=== PATIENT | male | born 1965 | race Caucasian/White ===

== ENCOUNTER 2019-04-19 22:45 | Emergency (ER) | payer SELFPAY ==
[~2019-04-19] VITALS: Ht 167.6 cm; Wt 95.3 kg
[2019-04-19] MEDS ORDERED: IV NORMAL SALINE 1000ML BAG 1,000 ML IV ONE (23:15)
[2019-04-19] MEDS ORDERED: ONDANSETRON PF 4 MG/2 ML VIAL. IV ONE (23:30)
[2019-04-19] MEDS ORDERED: MULTIVIT INFUSN,ADULT 4,VIT K 10 ML, THIAMINE INJ 100 MG, FOLIC ACID INJ 1 MG in IV NOR... IV ONE (23:30)
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
[2019-04-20 00:23] LABS: BASO # 0.1 x10^3/uL (0.0-0.2); BASO % 1 % (0-3); EOS # 0.2 x10^3/uL (0.0-0.7); EOS % 3 % (0-3); HEMATOCRIT 47.2 % (39.0-53.0); HEMOGLOBIN 16.6 g/dL (13.0-17.5); LYMPH # 2.4 x10^3/uL (1.0-4.8); LYMPH % 30 % (24-48); MEAN CORPUSCULAR HEMOGLOBIN 33 pg (25-35); MEAN CORPUSCULAR HGB CONC 35 g/dL (31-37); MEAN CORPUSCULAR VOLUME 94 fL (79-100); MONO # 0.7 x10^3/uL (0.0-1.1); MONO % 8 % (0-9); NEUT # 4.7 x10^3/uL (1.8-7.7); NEUT % 58 % (31-73); PLATELET COUNT 333 x10^3/uL (140-400); RED BLOOD COUNT 5.04 x10^6/uL (4.30-5.70); RED CELL DISTRIBUTION WIDTH 13.5 % (11.5-14.5); WHITE BLOOD COUNT 8.1 x10^3/uL (4.0-11.0)
[2019-04-20 00:32] LABS: CALCIUM 8.9 mg/dL (8.5-10.1); CREATININE 0.8 mg/dL (0.7-1.3); GFR 100.4; POTASSIUM 3.5 mmol/L (3.5-5.1)
[2019-04-20 00:44] LABS: ALBUMIN 3.5 g/dL (3.4-5.0); ALBUMIN/GLOBULIN RATIO 0.9 (1.0-1.7); TOTAL BILIRUBIN 0.8 mg/dL (0.2-1.0); TOTAL PROTEIN 7.3 g/dL (6.4-8.2)
--- NOTE | 2019-04-20 00:53 | RAD ---
CT HEAD AND CERVICAL SPINE WO Date: 04/20/2019 12:24 AM Clinical Indication: Seizure, pain, trauma Comparison: None. Technique: 5 mm axial tomographic images were obtained of the head without contrast. These were viewed on brain and bone windows. CT imaging of the cervical spine was performed without contrast. Coronal and sagittal reformatted images were performed. One or more of the following dose reduction techniques were utilized: Automated exposure control (AEC), Adjustment of mA and/or kV according to patient size, Use of iterative reconstruction technique such as ASiR, CT scan done according to ALARA and image gently/image wisely HEAD FINDINGS: The brain parenchyma is normal in attenuation. No intra- or extra-axial mass or fluid collection. No acute hemorrhage. The ventricles are normal in size, shape, and morphology. The wright-white matter junction is normal. The basilar cisterns are patent. Nonspecific small left cerebellar calcification, possibly a cavernoma. The visualized paranasal sinuses are normal. The visualized portions of the orbits and globes are normal. The mastoid air cells are clear. No aggressive osseous lesion or fracture. Right frontal scalp lipoma. CERVICAL SPINE FINDINGS: Postsurgical changes of ACDF at C6-C7, with interbody spacer. Straightening of the cervical lordosis. No acute fracture. No aggressive lytic or blastic osseous lesion. Mild multilevel degenerative disc height loss. Multilevel disc protrusions and marginal osteophytes results in multilevel spinal canal stenosis, worst and moderate to severe at C6-7. Multilevel uncovertebral and facet arthrosis results in multilevel predominately mild to moderate neural foraminal narrowing. The thyroid gland is normal. No cervical lymphadenopathy. The visualized aerodigestive tract is unremarkable. Bilateral carotid atherosclerosis. The visualized lung apices are clear. IMPRESSION: 1. No acute intracranial process. 2. No acute osseous abnormality of the cervical spine. Electronically signed by: Trae Prado MD (04/20/2019 12:50 AM) [id number]
[2019-04-20] MEDS ORDERED: KETOROLAC 15 MG/ML VIAL. IV ONE (01:00)
[2019-04-20] MEDS ORDERED: ORPHENADRINE CITRATE 60 MG/2 ML VIAL. IV ONE (01:00)
[2019-04-20] MEDS ORDERED: ORPH100T PO (02:05)
[2019-04-20] MEDS ORDERED: ONDA4TAB12 PO (02:05)
[2019-04-20 02:40] VITALS: BP 103/55
--- NOTE | 2019-04-20 05:21 | EKG ---
[facility] [address] [place] [address] Test Date: 2019-04-19 Test Time: 23:33:56 Pat Name: NAZARIO COLEMAN Department: Room: Gender: M [employer]acking [employer]: : [id number] Requested By: BRUCE SANTIAGO Order Number: [id number] Reading MD: Measurements Intervals [place] Rate: 76 P: 41 [place]: 154 QRS: 90 QRSD: 118 T: 58 QT: 400 QTc: 454 Interpretive Statements SINUS RHYTHM INCOMPLETE RIGHT BUNDLE BRANCH BLOCK NON SPECIFIC ST-T ABNORMALITY (ELEVATION) OTHERWISE NORMAL ECG No previous ECG available for comparison
== END 2019-04-20 03:00 | disposition home or self-care (01) ==
LOC: ER 22:45
DX: R56.9 Unspecified convulsions (principal); R11.2 Nausea with vomiting, unspecified; G89.29 Other chronic pain; M54.42 Lumbago with sciatica, left side; R19.7 Diarrhea, unspecified; F10.20 Alcohol dependence, uncomplicated; Y90.0 Blood alcohol level of less than 20 mg/100 ml; Z88.5 Allergy status to narcotic agent
CPT/HCPCS: 36415; 70450; 72125; 80053; 82553; 83605; 83690; 83735; 84484; 85025; 93005; 96361; 96365; 96375; 99285; G0480; J1885; J2360; J2405; J7030

== ENCOUNTER 2019-05-02 22:09 | Emergency (ER) | payer SELFPAY ==
[~2019-05-02] VITALS: Ht 170.2 cm; Wt 99.8 kg
[~2019-05-02 22:09] MED LIST: ONDA4TAB12 PO; ORPH100T PO
[2019-05-02 22:35] LABS: BASO # 0.1 x10^3/uL (0.0-0.2); BASO % 1 % (0-3); EOS # 0.4 x10^3/uL (0.0-0.7); EOS % 5 % (0-3); HEMATOCRIT 49.1 % (39.0-53.0); HEMOGLOBIN 17.1 g/dL (13.0-17.5); LYMPH # 4.1 x10^3/uL (1.0-4.8); LYMPH % 45 % (24-48); MEAN CORPUSCULAR HEMOGLOBIN 33 pg (25-35); MEAN CORPUSCULAR HGB CONC 35 g/dL (31-37); MEAN CORPUSCULAR VOLUME 94 fL (79-100); MONO # 0.7 x10^3/uL (0.0-1.1); MONO % 8 % (0-9); NEUT # 3.8 x10^3/uL (1.8-7.7); NEUT % 41 % (31-73); PLATELET COUNT 326 x10^3/uL (140-400); RED BLOOD COUNT 5.23 x10^6/uL (4.30-5.70); RED CELL DISTRIBUTION WIDTH 13.7 % (11.5-14.5); WHITE BLOOD COUNT 9.2 x10^3/uL (4.0-11.0)
--- NOTE | 2019-05-02 22:39 | PHYS DOC ---
Past Medical History Past Medical History: Alcoholism, CAD, Depression, Diabetes-Type II, High Cholesterol, Hypertension, Hypothyroid (BRUCE JUAREZ APRN) Alcohol Use: Heavy Drug Use: None (BRUCE JUAREZ APRN) Adult General Chief Complaint Chief Complaint: SEIZURE HPI HPI Patient is a 53 year old male that presents with alcohol intoxication, and seizures. The patient states he has a history of seizures this occurred 19 years ago. He is not on any seizure medicine. The patient has been drinking heavily today and started with 5 beers at the [employer] and has continued to watch football all day. The patient states he has been having more seizures than normal recently this correlates with his alcohol use. Rates his pain as 10 out of 10 in severity and states he has chronic pain, and is on 30 mg oxycodone at home. (BRUCE JUAREZ APRN) Review of Systems Review of Systems Constitutional: Denies fever or chills [] Eyes: Denies change in visual acuity, redness, or eye pain [] HENT: Denies nasal congestion or sore throat [] Respiratory: Denies cough or shortness of breath [] Cardiovascular: No additional information not addressed in HPI [] GI: Denies abdominal pain, nausea, vomiting, bloody stools or diarrhea [] : Denies dysuria or hematuria [] Musculoskeletal: Denies back pain or joint pain [] Integument: Denies rash or skin lesions [] Neurologic: Denies headache, focal weakness or sensory changes [] Endocrine: Denies polyuria or polydipsia [] Complete systems were reviewed and found to be within normal limits, except as documented in this note. (BRUCE JUAREZ APRN) Current Medications Current Medications Current Medications Medications (Trade) Dose Ordered Sig/Quinton Start Time Stop Time Status Last Admin Dose Admin Folic Acid (Folic Acid) 1 mg 1X ONCE 05/02/19 22:45 05/02/19 22:46 DC Ketamine HCl (Ketamine) 10 mg 1X ONCE 05/02/19 22:30 05/02/19 22:32 DC 05/02/19 22:45 10 MG Levetiracetam 1500 mg/Dextrose 115 ml @ 440 mls/hr 1X ONCE 05/02/19 23:45 05/03/19 00:00 DC 05/02/19 23:42 440 MLS/HR Lorazepam (Ativan Inj) 2 mg 1X ONCE 05/02/19 22:30 05/02/19 22:32 DC 05/02/19 23:40 2 MG Sodium Chloride 500 ml @ 500 mls/hr 1X ONCE 05/02/19 22:30 05/02/19 23:29 DC 05/02/19 22:45 500 MLS/HR Thiamine HCl 100 mg/Dextrose 51 ml @ 102 mls/hr 1X ONCE 05/02/19 22:45 05/02/19 23:14 DC 05/02/19 23:38 102 MLS/HR (KAYLAH SEALS MD) Allergies Allergies Allergies Coded Allergies Type Severity Reaction Last Updated Verified morphine Adverse Reaction Mild nausea 04/19/19 Yes (KAYLAH SEALS MD) Physical Exam Physical Exam Constitutional: Well developed, well nourished, no acute distress, non-toxic appearance. [] HENT: Normocephalic, atraumatic, bilateral external ears normal, oropharynx moist, no oral exudates, nose normal. [] Eyes: PERRLA, EOMI, conjunctiva normal, no discharge. [] Neck: Normal range of motion, no tenderness, supple, no stridor. [] Cardiovascular:Heart rate regular rhythm, no murmur [] Lungs & Thorax: Bilateral breath sounds clear to auscultation [] Abdomen: Bowel sounds normal, soft, no tenderness, no masses, no pulsatile masses. [] Skin: Warm, dry, no erythema, no rash. [] Back: No tenderness, no CVA tenderness. [] Extremities: No tenderness, no cyanosis, no clubbing, ROM intact, no edema. [] Neurologic: Alert and oriented X 3, slurred speech, smells of ETOH, normal motor function, normal sensory function, no focal deficits noted. [] Psychologic: Affect normal, judgement reduced, mood normal. [] (BRUCE JUAREZ APRN) Current Patient Data Vital Signs Vital Signs Date Time Temp Pulse Resp B/P (MAP) Pulse Ox O2 Delivery O2 Flow Rate FiO2 05/03/19 02:30 70 21 93 05/02/19 22:10 97.8 100/62 (75) Room Air 97.8 (KAYLAH SEALS MD) Lab Values Laboratory Tests Test 05/02/19 22:15 05/02/19 23:30 White Blood Count 9.2 x10^3/uL (4.0-11.0) Red Blood Count 5.23 x10^6/uL (4.30-5.70) Hemoglobin 17.1 g/dL (13.0-17.5) Hematocrit 49.1 % (39.0-53.0) Mean Corpuscular Volume 94 fL (79-100) Mean Corpuscular Hemoglobin 33 pg (25-35) Mean Corpuscular Hemoglobin Concent 35 g/dL (31-37) Red Cell Distribution Width 13.7 % (11.5-14.5) Platelet Count 326 x10^3/uL (140-400) Neutrophils (%) (Auto) 41 % (31-73) Lymphocytes (%) (Auto) 45 % (24-48) Monocytes (%) (Auto) 8 % (0-9) Eosinophils (%) (Auto) 5 % (0-3) H Basophils (%) (Auto) 1 % (0-3) Neutrophils # (Auto) 3.8 x10^3/uL (1.8-7.7) Lymphocytes # (Auto) 4.1 x10^3/uL (1.0-4.8) Monocytes # (Auto) 0.7 x10^3/uL (0.0-1.1) Eosinophils # (Auto) 0.4 x10^3/uL (0.0-0.7) Basophils # (Auto) 0.1 x10^3/uL (0.0-0.2) Sodium Level 139 mmol/L (136-145) Potassium Level 3.8 mmol/L (3.5-5.1) Chloride Level 103 mmol/L (98-107) Carbon Dioxide Level 18 mmol/L (21-32) L Anion Gap 18 (6-14) H Blood Urea Nitrogen 5 mg/dL (8-26) L Creatinine 0.9 mg/dL (0.7-1.3) Estimated GFR (Cockcroft-Gault) 87.6 BUN/Creatinine Ratio 6 (6-20) Glucose Level 95 mg/dL (70-99) Lactic Acid Level 4.9 mmol/L (0.4-2.0) *H Calcium Level 9.2 mg/dL (8.5-10.1) Total Bilirubin 0.5 mg/dL (0.2-1.0) Aspartate Amino Transferase (AST) 24 U/L (15-37) Alanine Aminotransferase (ALT) 19 U/L (16-63) Alkaline Phosphatase 112 U/L (46-116) Total Protein 7.6 g/dL (6.4-8.2) Albumin 3.6 g/dL (3.4-5.0) Albumin/Globulin Ratio 0.9 (1.0-1.7) L Ethyl Alcohol Level 173 mg/dL (0-10) H Urine Opiates Screen Neg (NEG) Urine Methadone Screen Neg (NEG) Urine Barbiturates Neg (NEG) Urine Phencyclidine Screen Neg (NEG) Urine Amphetamine/Methamphetamine Neg (NEG) Urine Benzodiazepines Screen Neg (NEG) Urine Cocaine Screen Pos (NEG) Urine Cannabinoids Screen Neg (NEG) Urine Ethyl Alcohol Pos (NEG) Laboratory Tests 05/02/19 22:15 Laboratory Tests 05/02/19 22:15 (KAYLAH SEALS MD) Lab Values Laboratory Tests Test 05/02/19 22:15 05/02/19 23:30 White Blood Count 9.2 x10^3/uL (4.0-11.0) Red Blood Count 5.23 x10^6/uL (4.30-5.70) Hemoglobin 17.1 g/dL (13.0-17.5) Hematocrit 49.1 % (39.0-53.0) Mean Corpuscular Volume 94 fL (79-100) Mean Corpuscular Hemoglobin 33 pg (25-35) Mean Corpuscular Hemoglobin Concent 35 g/dL (31-37) Red Cell Distribution Width 13.7 % (11.5-14.5) Platelet Count 326 x10^3/uL (140-400) Neutrophils (%) (Auto) 41 % (31-73) Lymphocytes (%) (Auto) 45 % (24-48) Monocytes (%) (Auto) 8 % (0-9) Eosinophils (%) (Auto) 5 % (0-3) H Basophils (%) (Auto) 1 % (0-3) Neutrophils # (Auto) 3.8 x10^3/uL (1.8-7.7) Lymphocytes # (Auto) 4.1 x10^3/uL (1.0-4.8) Monocytes # (Auto) 0.7 x10^3/uL (0.0-1.1) Eosinophils # (Auto) 0.4 x10^3/uL (0.0-0.7) Basophils # (Auto) 0.1 x10^3/uL (0.0-0.2) Sodium Level 139 mmol/L (136-145) Potassium Level 3.8 mmol/L (3.5-5.1) Chloride Level 103 mmol/L (98-107) Carbon Dioxide Level 18 mmol/L (21-32) L Anion Gap 18 (6-14) H Blood Urea Nitrogen 5 mg/dL (8-26) L Creatinine 0.9 mg/dL (0.7-1.3) Estimated GFR (Cockcroft-Gault) 87.6 BUN/Creatinine Ratio 6 (6-20) Glucose Level 95 mg/dL (70-99) Lactic Acid Level 4.9 mmol/L (0.4-2.0) *H Calcium Level 9.2 mg/dL (8.5-10.1) Total Bilirubin 0.5 mg/dL (0.2-1.0) Aspartate Amino Transferase (AST) 24 U/L (15-37) Alanine Aminotransferase (ALT) 19 U/L (16-63) Alkaline Phosphatase 112 U/L (46-116) Total Protein 7.6 g/dL (6.4-8.2) Albumin 3.6 g/dL (3.4-5.0) Albumin/Globulin Ratio 0.9 (1.0-1.7) L Ethyl Alcohol Level 173 mg/dL (0-10) H Urine Opiates Screen Neg (NEG) Urine Methadone Screen Neg (NEG) Urine Barbiturates Neg (NEG) Urine Phencyclidine Screen Neg (NEG) Urine Amphetamine/Methamphetamine Neg (NEG) Urine Benzodiazepines Screen Neg (NEG) Urine Cocaine Screen Pos (NEG) Urine Cannabinoids Screen Neg (NEG) Urine Ethyl Alcohol Pos (NEG) Laboratory Tests 05/02/19 22:15 Laboratory Tests 05/02/19 22:15 (BRUCE JUAREZ APRN) EKG EKG [] (BRUCE JUAREZ APRN) Radiology/Procedures Radiology/Procedures [] (BRUCE JUAREZ APRN) Course & Med Decision Making Course & Med Decision Making Pertinent Labs and Imaging studies reviewed. (See chart for details) Will get labs (patient is not on seizure medication), and tox. Will also give 2 mg of Ativan and then 0.1 mg/kg of Ketamine to help with alcohol, seizures, pain, and agitation. Will give 500 mL bolus of fluid with thiamine and folic acid. Also loaded up patient with 1500 mg of Keppra. Patient has lactic of 4.9 that is due to the seizures the patient has been having. The patient is positive for cocaine and ETOH level of 173. Other labs were unremarkable. Will d/c home once patient is clinically sober. (BRUCE JUAREZ APRN) Dragon Disclaimer Dragon Disclaimer This electronic medical record was generated, in whole or in part, using a voice recognition dictation system. (BRUCE JUAREZ APRN) Departure Departure Impression: Primary Impression: Alcohol intoxication Additional Impression: Seizures Disposition: HOME, SELF-CARE Condition: STABLE Referrals: NON,STAFF (PCP) CANDELARIO IRWIN MD Patient Instructions: Alcohol Intoxication Additional Instructions: Thank you for visiting [facility]. We appreciate you trusting us with your care. If any additional problems come up don't hesitate to return to visit us. Please follow up with your primary care provider so they can plan additional care if needed and know about the problem that you had. If symptoms worsen come back to the Emergency Department. Any concerning symptoms that start such as chest pain, shortness of air, weakness or numbness on one side of the body, running high fevers or any other concerning symptoms return to the ER. Please follow up with neurology in regard to your seizures. Please do not drive until you have been cleared by neurology. Please stop drinking and using cocaine this lowers your seizure threshold and can cause you to have seizures. Attending Signature I have participated in the care of this patient and I have reviewed and agree with all pertinent clinical information above including history, exam, and recommendations. (KAYLAH SEALS MD) Problem Qualifiers Primary Impression: Alcohol intoxication Complication of substance-induced condition: uncomplicated Qualified Codes: F10.920 - Alcohol use, unspecified with intoxication, uncomplicated BRUCE JUAREZ APRN May 02, 2019 22:38 KAYLAH SEALS MD May 03, 2019 05:05
[2019-05-02] MEDS: KETAMINE HCL 500 MG/10 ML VIAL. IV ONE (22:44)
[2019-05-02] MEDS: FOLIC ACID 1 MG TABLET. PO ONE (22:45)
[2019-05-02] MEDS: IV NORMAL SALINE 500ML BAG 500 ML IV ONE (22:45)
[2019-05-02 22:50] LABS: CALCIUM 9.2 mg/dL (8.5-10.1); CREATININE 0.9 mg/dL (0.7-1.3); GFR 87.6; POTASSIUM 3.8 mmol/L (3.5-5.1)
[2019-05-02 22:57] LABS: ALBUMIN 3.6 g/dL (3.4-5.0); ALBUMIN/GLOBULIN RATIO 0.9 (1.0-1.7); TOTAL BILIRUBIN 0.5 mg/dL (0.2-1.0); TOTAL PROTEIN 7.6 g/dL (6.4-8.2)
[2019-05-02] MEDS: THIAMINE INJ 100 MG in IV DEXTROSE 5% 50 ML IV ONE (23:38)
[2019-05-02] MEDS: levETIRAcetam 1,500 MG in IV DEXTROSE 5% 100ML 100 ML IV ONE (23:42)
[2019-05-02 23:47] LABS: AMPHETAMINE/METHAMPHETAMINE NEG (NEG); BARBITURATES NEG (NEG); BENZODIAZEPINES NEG (NEG); CANNABINOIDS NEG (NEG); COCAINE POS (NEG); METHADONE NEG (NEG); OPIATES NEG (NEG); PHENCYCLIDINE NEG (NEG)
[2019-05-03 02:30] VITALS: BP 96/53
== END 2019-05-03 02:40 | disposition home or self-care (01) ==
LOC: ER 22:09
DX: F10.229 Alcohol dependence with intoxication, unspecified (principal); R56.9 Unspecified convulsions; R47.81 Slurred speech; I25.10 Atherosclerotic heart disease of native coronary artery without angina pectoris; E11.9 Type 2 diabetes mellitus without complications; F32.9 Major depressive disorder, single episode, unspecified; E78.00 Pure hypercholesterolemia, unspecified; E03.9 Hypothyroidism, unspecified; G89.29 Other chronic pain; Z88.5 Allergy status to narcotic agent; Y90.6 Blood alcohol level of 120-199 mg/100 ml
CPT/HCPCS: 36415; 80053; 80307; 83605; 85025; 96365; 96368; 96375; 99284; G0480; J1953; J2060; J3490; J7040